=== PATIENT | female | born 1975 | race Caucasian/White ===

== ENCOUNTER → 2017-02-11 | Outpatient (CLI) | payer OTHER | LOC: US 13:24 | DX: M25.562 Pain in left knee (principal) | CPT/HCPCS: 73502; 73552; 73560; 93971 ==

== ENCOUNTER → 2017-02-14 | Outpatient (CLI) | payer OTHER | LOC: SLEEP 21:30 | DX: G47.30 Sleep apnea, unspecified (principal) | CPT/HCPCS: 95811 ==

== ENCOUNTER → 2020-11-19 | Outpatient (CLI) | payer OTHER ==
[~2020-11-19] MED LIST: CLEOCIN HCL300 MG PO
== END ==
LOC: KOH-I 11-12 11:00
DX: R74.01 Elevation of levels of liver transaminase levels (principal); K76.0 Fatty (change of) liver, not elsewhere classified
CPT/HCPCS: 76705

== ENCOUNTER → 2021-07-07 | Outpatient (CLI) | payer OTHER ==
[~2021-07-07] MED LIST changes: +CELEXA40 MG PO; +COLACE 100MG C100 MG PO; +HYDROCODON-ACE1 EAC6 PO; +LIPITOR20 MG PO; +MEDROXYPROGESTE10 MG PO; +METFORMIN HCL1000 MG PO; +TRULICITY1.5 MG/0.5 SQ
[2021-07-07 12:17] LABS: RED BLOOD COUNT 3.91 M/UL (4.00-5.10); WHITE BLOOD COUNT 6.3 K/UL (4.5-11.0)
[2021-07-07 12:38] LABS: BUN/CREATININE RATIO 6 (0-10)
== END ==
LOC: OPSV2 11:23
PROVIDERS: Obstetrics & Gynecology
DX: Z01.812 Encounter for preprocedural laboratory examination (principal); N93.9 Abnormal uterine and vaginal bleeding, unspecified
CPT/HCPCS: 36415; 80053; 85025

== ENCOUNTER → 2021-07-09 | Day surgery (SDC) | payer OTHER | END | disposition home or self-care (01) | LOC: OR 10:01 | DX: C54.1 Malignant neoplasm of endometrium (principal); N88.2 Stricture and stenosis of cervix uteri; E66.8 Other obesity; I10 Essential (primary) hypertension; E78.5 Hyperlipidemia, unspecified; E11.9 Type 2 diabetes mellitus without complications; G47.30 Sleep apnea, unspecified; F41.9 Anxiety disorder, unspecified; F32.9 Major depressive disorder, single episode, unspecified; Z68.42 Body mass index [BMI] 45.0-49.9, adult; Z88.0 Allergy status to penicillin; Z79.84 Long term (current) use of oral hypoglycemic drugs; Z79.899 Other long term (current) drug therapy | CPT/HCPCS: 82962; 84702; 93005; J1100; J1885; J2001; J2250; J2405; J2704; J2795; J3010; J7030; J7120 ==

== ENCOUNTER 2021-12-31 13:49 | Emergency (ER) | payer OTHER ==
[2021-12-31 17:41] LABS: HEMOGLOBIN 11.2 gm/dl (12.3-15.3); RED BLOOD COUNT 4.28 M/UL (4.00-5.10); WHITE BLOOD COUNT 9.8 K/UL (4.5-11.0)
[2021-12-31 18:08] LABS: BUN/CREATININE RATIO 11 (0-10)
== END 2021-12-31 21:30 | disposition home or self-care (01) ==
LOC: ER1 13:49
PROVIDERS: Physician Assistant
DX: R07.89 Other chest pain (principal); E11.9 Type 2 diabetes mellitus without complications; I10 Essential (primary) hypertension
CPT/HCPCS: 71045; 80053; 82550; 82553; 83874; 84484; 85025; 85379; 93005; 99285